=== PATIENT | female | born 1950 | race Caucasian/White ===

== ENCOUNTER 2019-10-03 11:45 | Emergency (ER) | payer MEDICARE, OTHER, MEDICAID ==
--- OUTSIDE RECORDS SUMMARY | 2019-10-03 12:10 | XMS REPORT | Continuity of Care Document ---
:1950 External Reference #:[id number] Author Name Theo Zepeda PA Address [address], [address] [place] [address] Care Team Providers Name Role Phone Roger Greenberg MD - Family Care Team Information Geological Sample Tester [phone] Medicine Problems Active Problems Provider Date Chest pain Collins Cash MD, PhD Onset: 05/13/2011 Benign essential hypertension Collins Cash MD, PhD Onset: 05/13/2011 Mixed hyperlipidemia Collins Cash MD, PhD Onset: 05/13/2011 Heart murmur Collins Cash MD, PhD Onset: 05/13/2011 Coronary arteriosclerosis Priscila Mauricio ANP Onset: 08/12/2011 Type 2 diabetes mellitus Priscila Mauricio ANP Onset: 08/12/2011 Palpitations Priscila Mauricio ANP Onset: 08/12/2011 Chest pain Collins Cash MD, PhD Onset: 08/12/2011 Dyspnea Collins Cash MD, PhD Onset: 08/12/2011 Sleep disorder Priscila Mauricio ANP Onset: 04/27/2013 Syncope and collapse Priscila Mauricio ANP Onset: 04/27/2013 Syncope Onset: 12/12/2014 Hypoglycemia Onset: 10/20/2014 Pneumonia Onset: 09/11/2014 Essential hypertension Priscila Mauricio ANP Onset: 10/10/2015 Atherosclerotic heart disease of [place] Priscila Mauricio ANP Onset: 2015 coronary artery with unspecified angina pectoris Tear film insufficiency Karel Longo MD Onset: 11/25/2017 Combined form of senile cataract Karel Longo MD Onset: 11/25/2017 Rubella with complication Karel Longo MD Onset: 11/25/2017 Orthostatic hypotension Betsey Mendoza M.D. Onset: 10/05/2018 Overactive bladder Betsey Mendoza M.D. Onset: 10/05/2018 Other urethral stricture, female Betsey Mendoza M.D. Onset: 11/13/2018 Other specified disorders of bladder Betsey Mendoza M.D. Onset: 03/29/2019 Retention of urine Betsey Mendoza M.D. Onset: 07/09/2019 Social History Type Date Description Comments Sex Unknown Tobacco Use Start: Unknown Never Smoked Cigarettes Smoking Status Reviewed: 09/02/19 Never Smoked Cigarettes ETOH Use Never used alcohol Tobacco Use Start: Unknown Patient has never smoked Recreational Drug Use Never Used Drugs Allergies, Adverse Reactions, Alerts Active Allergies Reaction Severity Comments Date Sumatriptan 01/04/2015 Inactive Allergies NKDA 05/13/2011 Medications Active Medications SIG Qnty Indications Ordering Date Provider Ofloxacin (Ophthalmic) 1 drop left eye 1units H25.812 Karel Longo, 2018 0.3% four times daily MD Solution for 10 days beginning three days before surgery Prednisolone Acetate 1 drop left eye 5ml H25.812 Karel Longo, 07/20/2019 1% four times daily MD Suspension for four weeks; please begin after surgery Ketorolac Tromethamine 1 drop operative 5units H25.812 Karel Longo, 07/20 0.5% eye 4 times MD Solution daily for 2 weeks; please begin 3 days prior to operation Botox In bladder by 1unida Mendoza, 06/15/2019 100Unit Solution Rec Franco Leggett Fludrocortisone Acetate 2 by mouth every 60tabs Andrea So MD 2018 day 0.1mg Tablets SM Aspirin Adult Low Take One Tablet 90tabs I25.119 Bria Bennett 2018 Strength By Mouth Every SHRUTHI Suero, 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 DR Day MACHINING ASSOCIATE Ranexa 1 by mouth twice 180tabs R07.9 Collins Cash, 08/24/2013 1000mg Tablets ER a day , PhD 12HR FQ Protective Underwear Use as Needed Unknown SM/Med 32-44" Misc Vitamin B12 1 by mouth every Unknown 100mcg Tablets day Onetouch Verio Use To Test Unknown Strips Blood Sugar Four Times A Day And as Needed Colace 1 by mouth daily Unknown 100mg Capsules and can take twice a day as needed Evening [place] Oil 1 po a day Unknown 1000mg Capsules Multivitamin Adults 1 tab po by Unknown mouth Tablets Topiramate take one tablet Unknown 50mg Tablets by mouth twice a day Magnesium 1 by mouth every Unknown 400mg Tablets day Coq10 Maximum Strength 1 by mouth every Unknown day 200mg Capsules Invokana 1 by mouth every Unknown 100mg Tablets day Pantoprazole Sodium 1 by mouth every Unknown 40mg day Tablets DR Bang HFA prn Unknown 108(90Base) mcg/Act Aerosol Nitrostat 1 tab sl every 5 30tabs Jolynn, 0.4mg Tablets Sub min x3 chest Wagner Jha M.D., pain FACC Zoloft 1 po qd Unknown 150mg Tablets Simvastatin 1 po qd 90tabs Collins Cash, 10mg Tablets , PhD History Medications Tamsulosin HCL 1 by mouth every 30caps N32.89 Betsey Mendoza, 03/29/2019 - day at bedtime M.D. 05/21/2019 0.4mg Capsules Medications Administered in Office Medication SIG Qnty Indications Ordering Provider Date Injection Ketorolac Theo Zepeda PA 05/07/2019 Tromethamine 30 MG/mL (Toradol) Injection Immunizations CPT Code Status Date Vaccine Lot # [id number] Given Unknown Pneumovax Injection Vital Signs Date Vital Result Comment 09/02/2019 11:45am BP Systolic 150 mmHg BP Diastolic 75 mmHg Body Temperature 97.5 F Heart Rate 73 /min Respiratory Rate 16 /min Height 57 inches 4'9" Weight 108.00 lb Pain Level 0 BMI (Body Mass Index) 23.4 kg/m2 BSA (Body Surface Area) 1.38 m2 [place] body weight in kilograms 45 kg O2 % BldC Oximetry 96 % 07/26/2019 10:44am BP Systolic 143 mmHg BP Diastolic 86 mmHg Body Temperature 97.1 F Heart Rate 105 /min Respiratory Rate 17 /min Height 57 inches 4'9" Weight 109.00 lb Pain Level 0 BMI (Body Mass Index) 23.6 kg/m2 BSA (Body Surface Area) 1.39 m2 [place] body weight in kilograms 45 kg O2 % BldC Oximetry 96 % Results Test Acquired Date Facility Test Result H/L Range Note Ua RFX Micro & 06/17/2019 [facility] Urine Color Yellow Yellow 1 Culture II [address] [place] [address] [phone] Urine Clarity Clear Clear Urine Glucose - Dipstick >1000 mg/dL Negative Urine Bilirubin - Dipstick NEGATIVE Negative Urine Ketone NEGATIVE mg/dL Negative Urine Specific Romeo 1.027 Normal 1.010-1.030 Urine Blood NEGATIVE 0-2 Urine PH 7.0 Normal 6.5-7.5 Urine Protein - Dipstick NEGATIVE mg/dL Negative Urine Urobilinogen - Dipstick < 2.0 mg/dL < 2.0 Urine Nitrite - Dipstick NEGATIVE Negative Urine Leuk Esterase NEGATIVE Negative Source: URINE, CLEAN CAT <SEE NOTE> 2 Urine Culture 05/05/2019 [facility] Urine Culture NO GROWTH: FINAL 3, [address] <SEE NOTE> [place] [address] [phone] Urine Culture 04/20/2019 [facility] Urine Culture MIXED URETHRAL F 5, [address] <SEE NOTE> [place] [address] [phone] Quantity > 100,000 CFU/mL 7 Urine Dipstick 04/20/2019 [facility] Ua Color yellow Yellow Ua Clarity cloudy Clear Ua Leuko neg Negative Ua Nitrite neg Negative Ua Urobilinogen 0.2 0.2 - 1.0 E.U./dL Ua Protein 15 High Negative Ua PH 6.0 Low 6.5-7.5 Ua Blood neg Negative Ua Specific Romeo 1.020 1.010-1.030 Ua Ketones neg Negative Ua Bilirubin neg Negative Ua Glucose 1000 High Negative 1 N39.0 Z01.818 2 URINE, CLEAN CATCH 3 CONSULT 05/04/19 12:00 4 NO GROWTH: FINAL REPORT 5 N39.0 6 MIXED URETHRAL CHRSISY 7 > 100,000 CFU/mL CULTURE IN PROGRESS SPECIMEN IS A MIX OF GRAM NEGATIVE AND GRAM POSITIVE ORGANISMS. UNABLE TO DETERMINE WHICH ORGANISMS ARE FROM THE URINARY TRACT OR THE RESULT OF SKIN VAGINAL PERIANAL CONTAMINATION DURING COLLECTION. SUGGEST REPEAT SPECIMEN IF CLINICALLY INDICATED. Procedures Date Code Description Status 07/28/2019 34162 Extracapsular Cataract Removal W/Insertion Of Intraocular Completed Lens pr 07/26/2019 24604 Measurement Post Voiding Residual Urine By Completed Ultrasound,Non-Imaging 07/20/2019 40188 Ophthalmic Biometry By Partial Coherence Interferometry Completed W/Intra 07/09/2019 43975 Measurement Post Voiding Residual Urine By Completed Ultrasound,Non-Imaging 07/09/2019 25676 Measurement Post Voiding Residual Urine By Completed Ultrasound,Non-Imaging 07/09/2019 29056 Insert Of Temporary Indwelling Bladder Catheter,Simple Completed 06/21/2019 83580 Cystourethroscopy With Chemodenervation Of The Bladder Completed 06/01/2019 86776 Eye Exam Est Patient Comprehensive Completed 05/17/2019 95326 Measurement Post Voiding Residual Urine By Completed Ultrasound,Non-Imaging 05/07/2019 15795 Theraputic Or Diagnostic Injection Completed 05/05/2019 13369 Cystourethroscopy W/ Biopsy Completed 04/20/2019 69994 Cystoscopy Completed 03/29/2019 04876 EKG-Tracing And Report Completed 03/18/2019 91304 voiding pressure study vp rheumatology intra abdominal voiding pressure Completed ap 03/18/2019 41969 emg studies of urethral sphincter, other than needle, any Completed tech 03/18/2019 15165 complex uroflowmetry electronic Completed 03/18/2019 15618 Cystometrogram complex w/ voiding and urethral pressure Completed studies 03/09/2019 97005 Measurement Post Voiding Residual Urine By Completed Ultrasound,Non-Imaging Medical Devices Description No Information Available Encounters Type Date Location Provider Dx Diagnosis Office Visit 09/02/2019 11:15a Urology Theo Zepeda N32.81 Overactive bladder PA Office Visit 07/26/2019 11:00a Urology Theo Zepeda N32.81 Overactive bladder PA R33.9 Retention of urine, unspecified Office Visit 07/20/2019 11:15a UrologBetsey Murphy N32.81 Overactive bladder M.D. R33.9 Retention of urine, unspecified Office Visit 07/09/2019 10:45a Urology Betsey Mendoza N32.81 Overactive bladder M.D. R33.9 Retention of urine, unspecified Office Visit 06/17/2019 9:30a Urology Theo Zepeda, R35.0 Frequency of PA micturition R39.15 Urgency of urination Office Visit 05/17/2019 10:15a Urology Betsey Mendoza N32.81 Overactive bladder M.D. Office Visit 05/07/2019 10:45a Urology Theo Zepeda N32.81 Overactive bladder PA M54.5 Low back pain Office Visit 03/29/2019 3:15p Urology Betsey Mendoza N32.81 Overactive bladder M.D. N32.89 Other specified disorders of bladder Office Visit 03/29/2019 9:40a Cardiology Office Daniel, I95.1 Orthostatic Marlyss SIMONA Medrano hypotension I25.10 Athscl heart disease of [place] coronary artery w/o ang pctrs E78.2 Mixed hyperlipidemia I34.0 Nonrheumatic mitral (valve) insufficiency Office Visit 03/09/2019 11:15a Urology Betsey Mendoza N32.81 Overactive bladder M.D. Assessments Date Code Description Provider 09/02/2019 N32.81 Overactive bladder Theo Zepeda PA 08/05/2019 Z48.810 Encounter for surgical aftercare following Karel Longo MD surgery on the sense organs 08/05/2019 Z96.1 Presence of intraocular lens Karel Longo MD 07/30/2019 Z01.818 Encounter for other preprocedural Karel Longo MD examination 07/30/2019 Z96.1 Presence of intraocular lens Karel Longo MD 07/29/2019 Z01.818 Encounter for other preprocedural Karel Longo MD examination 07/29/2019 Z96.1 Presence of intraocular lens Karel Longo MD 07/28/2019 H25.812 Combined forms of age-related cataract, Karel Longo MD left eye 07/28/2019 H57.03 Miosis Karel Longo MD 07/28/2019 Z86.19 Personal history of other infectious and Karel Longo MD parasitic diseases 07/26/2019 N32.81 Overactive bladder Theo Zepeda PA 07/26/2019 R33.9 Retention of urine, unspecified Theo Zepeda PA 07/20/2019 Z01.818 Encounter for other preprocedural Karel Longo MD examination 07/20/2019 N32.81 Overactive bladder Betsey Mendoza M.D. 07/20/2019 H25.812 Combined forms of age-related cataract, Karel Longo MD left eye 07/20/2019 R33.9 Retention of urine, unspecified Betsey Mendoza M.D. 07/20/2019 E11.65 Type 2 diabetes mellitus with hyperglycemia Karel Longo MD 07/20/2019 H04.123 Dry eye syndrome of bilateral lacrimal Karel Longo MD glands 07/20/2019 G47.33 Obstructive sleep apnea (adult) (pediatric) Karel Longo MD 07/09/2019 N32.81 Overactive bladder Betsey Mendoza M.D. 07/09/2019 R33.9 Retention of urine, unspecified Betsey Mendoza M.D. 06/21/2019 N32.81 Overactive bladder Betsey Mendoza M.D. 06/17/2019 R35.0 Frequency of micturition Theo Zepeda PA 06/17/2019 R39.15 Urgency of urination Theo Zepeda PA 06/01/2019 H25.812 Combined forms of age-related cataract, Karel Longo MD left eye 06/01/2019 E11.65 Type 2 diabetes mellitus with hyperglycemia Karel Longo MD 06/01/2019 H04.123 Dry eye syndrome of bilateral lacrimal Karel Longo MD glands 06/01/2019 G47.33 Obstructive sleep apnea (adult) (pediatric) Karel Longo MD 05/17/2019 N32.81 Overactive bladder Betsey Mendoza M.D. 05/07/2019 N32.81 Overactive bladder Theo Zepeda PA 05/07/2019 M54.5 Low back pain Theo Zepeda PA 05/05/2019 N32.9 Bladder disorder, unspecified Betsey Mendoza M.D. 05/05/2019 R35.0 Frequency of micturition Betsey Mendoza M.D. 05/05/2019 R39.15 Urgency of urination Betsey Mendoza M.D. 04/20/2019 N32.81 Overactive bladder Betsey Mendoza M.D. 03/29/2019 N32.81 Overactive bladder Betsey Mendoza M.D. 03/29/2019 I95.1 Orthostatic hypotension Oleksandr Sanchez PA 03/29/2019 N32.89 Other specified disorders of bladder Betsey Mendoza M.D. 03/29/2019 I25.10 Atherosclerotic heart disease of [place] Oleksandr Sanchez PA coronary artery without angina pectoris 03/29/2019 E78.2 Mixed hyperlipidemia Oleksandr Sanchez PA 03/29/2019 I34.0 Nonrheumatic mitral (valve) insufficiency Oleksandr Sanchez PA 03/18/2019 N32.81 Overactive Betsey Grant M.D. 03/18/2019 R39.12 Poor urinary stream Betsey Mendoza M.D. 03/09/2019 N32.81 Overactive bladder Betsey Mendoza M.D. Plan of Treatment Future Appointment(s):12/02/2019 10:00 am - Theo Zepeda PA at Iuvuexd9205/2019 10:00 am - Oleksandr Sanchez PA at Cardiology Office Functional Status Functional Condition Comment Date Status Independent with all ADL's Active Rolling walker is used to ambulate Active Independent with all IADL's Active Mental Status Description No Information Available Referrals Description No Information Available
--- OUTSIDE RECORDS SUMMARY | 2019-10-03 12:10 | XMS REPORT | Continuity of Care Document ---
:1950 External Reference #:[id number] Author Name Karel Longo MD Address [address] [place] [address] Care Team Providers Name Role Phone Roger Greenberg MD - Family Care Team Information Soloist Dancer [phone] Medicine Problems Active Problems Provider Date Chest [...] ANP Onset: 10/10/2015 Atherosclerotic heart disease of [place] Priscila Mauricio ANP Onset: 2015 coronary artery [...] Unknown Never Smoked Cigarettes Smoking Status Reviewed: 08/05/19 Never Smoked Cigarettes ETOH Use Never used [...] Every SHRUTHI Suero, 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 DR Day FLOW SPECIALIST Ranexa 1 by mouth twice 180tabs R07.9 [...] take twice a day as needed Evening [place] Oil 1 po a day Unknown 1000mg [...] Jolynn, 0.4mg Tablets Sub min x3 chest Wagnerjuancho Jha M.D., pain FACC Zoloft 1 po qd Unknown 150mg Tablets Simvastatin 1 po qd 90tabs Collins Cash, 10mg Tablets , PhD History Medications Tamsulosin HCL 1 by mouth 30caps N32.89 Betsey Mendoza, 03/29/2019 - 0.4mg every day at M.D. 05/21/2019 Capsules bedtime Myrbetriq 1 by mouth 30tabs Betsey Mendoza, 02/23/2019 - 50mg Tablets ER every day M.D. 05/21/2019 24HR Fludrocortisone Acetate 1 by mouth 30tabs Bria Bennett 02/12/2019 - every day [place], MSN, 03/12/2019 0.1mg Tablets FLOW SPECIALIST Medications Administered in Office Medication SIG Qnty Indications Ordering Provider Date Injection Ketorolac Theo Zepeda PA 05/07/2019 Tromethamine 30 MG/mL (Toradol) Injection Immunizations CPT Code Status Date Vaccine Lot # [id number] Given Unknown Pneumovax Injection Vital Signs Date Vital Result Comment 07/26/2019 10:44am BP Systolic 143 mmHg BP Diastolic 86 mmHg Body Temperature 97.1 F Heart Rate 105 /min Respiratory Rate 17 /min Height 57 inches 4'9" Weight 109.00 lb BMI (Body Mass Index) 23.6 kg/m2 BSA (Body Surface Area) 1.39 m2 [place] body weight in kilograms 45 kg O2 % BldC Oximetry 96 % Pain Level 0 07/20/2019 11:14am BP Systolic 155 mmHg BP Diastolic 83 mmHg Body Temperature 97.6 F Heart Rate 79 /min Respiratory Rate 16 /min Height 57 inches 4'9" Weight 109.00 lb BMI (Body Mass Index) 23.6 kg/m2 BSA (Body Surface Area) 1.39 m2 [place] body weight in kilograms 45 kg O2 % BldC Oximetry 98 % Pain Level 0 Results Test Acquired Date Facility Test Result H/L Range Note Ua RFX Micro & 06/17/2019 [facility] Urine Color Yellow Yellow 1 Culture II [address] [place] [address] [phone] Urine Clarity Clear Clear Urine Glucose - Dipstick >1000 mg/dL Negative Urine Bilirubin - Dipstick NEGATIVE Negative Urine Ketone NEGATIVE mg/dL Negative Urine Specific Painter 1.027 Normal 1.010-1.030 Urine Blood NEGATIVE 0-2 Urine PH 7.0 Normal 6.5-7.5 Urine Protein - Dipstick NEGATIVE mg/dL Negative Urine Urobilinogen - Dipstick < 2.0 mg/dL < 2.0 Urine Nitrite - Dipstick NEGATIVE Negative Urine Leuk Esterase NEGATIVE Negative Source: URINE, CLEAN CAT <SEE NOTE> 2 Urine Culture 05/05/2019 [facility] Urine Culture NO GROWTH: FINAL 3, [address] <SEE NOTE> [place] [address] [phone] Urine Culture 04/20/2019 [facility] Urine Culture MIXED URETHRAL F 5, [address] <SEE NOTE> [place] [address] [phone] Quantity > 100,000 CFU/mL 7 Urine Dipstick 04/20/2019 [facility] Ua Color yellow Yellow Ua Clarity cloudy Clear Ua Leuko neg Negative Ua Nitrite neg Negative Ua Urobilinogen 0.2 0.2 - 1.0 E.U./dL Ua Protein 15 High Negative Ua PH 6.0 Low 6.5-7.5 Ua Blood neg Negative Ua Specific Painter 1.020 1.010-1.030 Ua Ketones neg Negative Ua Bilirubin neg Negative Ua Glucose 1000 High Negative Urine Dipstick 02/23/2019 [facility] Ua Color Dark Yellow Yellow Ua Clarity Clear Clear Ua Leuko Negative Negative Ua Nitrite Negative Negative Ua Urobilinogen 0.2 0.2 - 1.0 E.U./dL Ua Protein Negative Negative Ua PH 6.0 Low 6.5-7.5 Ua Blood Negative Negative Ua Specific Painter 1.015 1.010-1.030 Ua Ketones Negative Negative Ua Bilirubin Negative Negative Ua Glucose 1000 High Negative 1 N39.0 Z01.818 2 URINE, CLEAN CATCH 3 CONSULT 05/04/19 12:00 4 NO GROWTH: FINAL REPORT 5 N39.0 6 MIXED URETHRAL CHRISSY 7 > 100,000 CFU/mL CULTURE IN PROGRESS SPECIMEN IS A MIX OF GRAM NEGATIVE AND GRAM POSITIVE ORGANISMS. UNABLE TO DETERMINE WHICH ORGANISMS ARE FROM THE URINARY TRACT OR THE RESULT OF SKIN VAGINAL PERIANAL CONTAMINATION DURING COLLECTION. SUGGEST REPEAT SPECIMEN IF CLINICALLY INDICATED. Procedures Date Code Description Status 07/28/2019 57620 Extracapsular Cataract Removal W/Insertion Of Intraocular Completed Lens pr 07/26/2019 47316 Measurement Post Voiding Residual Urine By Completed Ultrasound,Non-Imaging 07/20/2019 40006 Ophthalmic Biometry By Partial Coherence Interferometry Completed W/Intra 07/09/2019 27587 Measurement Post Voiding Residual Urine By Completed Ultrasound,Non-Imaging 07/09/2019 96735 Measurement Post Voiding Residual Urine By Completed Ultrasound,Non-Imaging 07/09/2019 59413 Insert Of Temporary Indwelling Bladder Catheter,Simple Completed 06/21/2019 18458 Cystourethroscopy With Chemodenervation Of The Bladder Completed 06/01/2019 81636 Eye Exam Est Patient Comprehensive Completed 05/17/2019 40795 Measurement Post Voiding Residual Urine By Completed Ultrasound,Non-Imaging 05/07/2019 81381 Theraputic Or Diagnostic Injection Completed 05/05/2019 40316 Cystourethroscopy W/ Biopsy Completed 04/20/2019 74857 Cystoscopy Completed 03/29/2019 07365 EKG-Tracing And Report Completed 03/18/2019 70680 voiding pressure study evp intra abdominal voiding pressure Completed ap 03/18/2019 05442 emg studies of urethral sphincter, other than needle, any Completed tech 03/18/2019 46180 complex uroflowmetry electronic Completed 03/18/2019 41105 Cystometrogram complex w/ voiding and urethral pressure Completed studies 03/09/2019 10709 Measurement Post Voiding Residual Urine By Completed Ultrasound,Non-Imaging 02/23/2019 19269 Measurement Post Voiding Residual Urine By Completed Ultrasound,Non-Imaging Medical Devices Description No Information Available Encounters Type Date Location Provider Dx Diagnosis Office Visit 07/26/2019 11:00a Urology Theo Zepeda, N32.81 Overactive bladder PA R33.9 Retention of urine, unspecified Office Visit 07/20/2019 11:15a Urology Betsey Mendoza N32.81 Overactive bladder M.D. R33.9 Retention of urine, unspecified Office Visit 07/09/2019 10:45a UrologBetsey Murphy N32.81 Overactive bladder M.D. R33.9 [...] 9:40a Cardiology Office Daniel, I95.1 Orthostatic Marlyss BMaddy, PA hypotension I25.10 Athscl heart disease of [place] coronary artery w/o ang pctrs E78.2 Mixed hyperlipidemia I34.0 Nonrheumatic mitral (valve) insufficiency Office Visit 03/09/2019 11:15a UrologBetsey Murphy N32.81 Overactive bladder M.D. Office Visit 02/23/2019 11:45a UrologBetsey Murphy N32Maddy81 Overactive bladder M.D. Assessments Date Code Description Provider 08/05/2019 Z96.1 Presence of intraocular lens Karel [...] left eye 07/20/2019 R33.9 Retention of urine, unspecBetsey Schmitz M.D. 07/20/2019 E11.65 Type 2 diabetes mellitus [...] M.D. 03/29/2019 I25.10 Atherosclerotic heart disease of [place] Oleksandr Sanchez PA coronary artery without angina pectoris 03/29/2019 E78.2 Mixed hyperlipidemia Oleksandr Sanchez PA 03/29/2019 I34.0 Nonrheumatic mitral (valve) insufficiency Oleksandr Sanchez PA 03/18/2019 N32.81 Overactive Betsey Grant M.D. 03/18/2019 R39.12 Poor urinary stream Betsey Mendoza M.D. 03/09/2019 N32.81 Overactive Betsey Grant M.D. 02/23/2019 N32.81 Overactive bladder Betsey Mendoza M.D. Plan of Treatment Future Appointment(s):08/30/2019 9:15 am - Karel Longo MD at [email or web address]/ 27/2019 9:00 am - Theo Zepeda PA at [email or web address]/09/2019 11:40 am - Oleksandr Sanchez PA at Cardiology Rfojtg4708/05/2019 - Karel Longo MDZ96.1 Presence of intraocular lensComments:- s/p ce, iol left eye 07/28/19- looks great; you're taking wonderful care of your eye- please stop ofloxacin- please stop ketorolac- prednisolone 1 drop operative eye four times daily for 4 weeks total - please stop erythromycin2-3 weeks post-op auto, refract osFollow up:2- 3 weeks post-op auto, refract os Functional Status Functional Condition Comment Date Status Independent with all ADL's Active Rolling walker is used to ambulate Active Independent with all IADL's Active Mental Status Description No Information Available Referrals Description No Information Available
--- OUTSIDE RECORDS SUMMARY | 2019-10-03 12:10 | XMS REPORT | Continuity of Care Document ---
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 Medicine Problems Active Problems Provider Date Chest pain Collins Cash MD, PhD Onset: 05/13/2011 Benign essential hypertension Collins Cash MD, PhD Onset: 05/13/2011 Mixed hyperlipidemia Collins Cash MD, PhD Onset: 05/13/2011 Heart murmur Collins Cahs MD, PhD Onset: 05/13/2011 Coronary arteriosclerosis Priscila [...] ANP Onset: 10/10/2015 Atherosclerotic heart disease of [place] Priscila Mauricio ANP Onset: 2015 coronary artery [...] Every SHRUTHI Suero, 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 Ranexa 1 by mouth twice 180tabs R07.9 [...] take twice a day as needed Evening [place] Oil 1 po a day Unknown 1000mg [...] CPT Code Status Date Vaccine Lot # [id number] Given Unknown Pneumovax Injection Vital Signs Date Vital Result Comment 09/06/2019 10:38am BP Systolic Sitting Left Arm 125 mmHg BP Diastolic Sitting Left Arm 60 mmHg Heart Rate 90 /min Respiratory Rate 16 /min Height 57 inches 4'9" Weight 105.00 lb BMI (Body Mass Index) 22.7 kg/m2 BSA (Body Surface Area) 1.37 m2 [place] body weight in kilograms 45 kg O2 % BldC Oximetry 96 % 09/02/2019 11:45am BP Systolic 150 mmHg BP Diastolic 75 mmHg Body Temperature 97.5 F Heart Rate 73 /min Respiratory Rate 16 /min Height 57 inches 4'9" Weight 108.00 lb Pain Level 0 BMI (Body Mass Index) 23.4 kg/m2 BSA (Body Surface Area) 1.38 m2 [place] body weight in kilograms 45 kg O2 % BldC Oximetry 96 % Results Test Acquired Date Facility Test Result H/L Range Note Ua RFX Micro & 06/17/2019 [facility] Urine Color Yellow Yellow 1 Culture II [address] [place] [address] [phone] Urine Clarity Clear Clear Urine Glucose - Dipstick >1000 mg/dL Negative Urine Bilirubin - Dipstick NEGATIVE Negative Urine Ketone NEGATIVE mg/dL Negative Urine Specific [place] 1.027 Normal 1.010-1.030 Urine Blood NEGATIVE 0-2 Urine PH 7.0 Normal 6.5-7.5 Urine Protein - Dipstick NEGATIVE mg/dL Negative Urine Urobilinogen - Dipstick < 2.0 mg/dL < 2.0 Urine Nitrite - Dipstick NEGATIVE Negative Urine Leuk Esterase NEGATIVE Negative Source: URINE, CLEAN CAT <SEE NOTE> 2 Urine Culture 05/05/2019 [facility] Urine Culture NO GROWTH: FINAL 3, [address] <SEE NOTE> [place] [address] [phone] Urine Culture 04/20/2019 [facility] Urine Culture MIXED URETHRAL F 5, [address] <SEE NOTE> [place] [address] [phone] Quantity > 100,000 CFU/mL 7 Urine Dipstick 04/20/2019 [facility] Ua Color yellow Yellow Ua Clarity cloudy Clear Ua Leuko neg Negative Ua Nitrite neg Negative Ua Urobilinogen 0.2 0.2 - 1.0 E.U./dL Ua Protein 15 High Negative Ua PH 6.0 Low 6.5-7.5 Ua Blood neg Negative Ua Specific [place] 1.020 1.010-1.030 Ua Ketones neg Negative Ua [...] CLINICALLY INDICATED. Procedures Date Code Description Status 09/02/2019 28314 Measurement Post Voiding Residual Urine By Completed Ultrasound,Non-Imaging 07/28/2019 39269 Extracapsular Cataract Removal W/Insertion Of Intraocular Completed Lens pr 07/26/2019 67515 Measurement Post Voiding Residual Urine By Completed Ultrasound,Non-Imaging 07/20/2019 86743 Ophthalmic Biometry By Partial Coherence Interferometry Completed W/Intra 07/09/2019 11917 Measurement Post Voiding Residual Urine By Completed Ultrasound,Non-Imaging 07/09/2019 60873 Measurement Post Voiding Residual Urine By Completed Ultrasound,Non-Imaging 07/09/2019 68693 Insert Of Temporary Indwelling Bladder Catheter,Simple Completed 06/21/2019 22137 Cystourethroscopy With Chemodenervation Of The Bladder Completed 06/01/2019 41938 Eye Exam Est Patient Comprehensive Completed 05/17/2019 55201 Measurement Post Voiding Residual Urine By Completed Ultrasound,Non-Imaging 05/07/2019 20463 Theraputic Or Diagnostic Injection Completed 05/05/2019 54899 Cystourethroscopy W/ Biopsy Completed 04/20/2019 85082 Cystoscopy Completed 03/29/2019 25411 EKG-Tracing And Report Completed 03/18/2019 48451 voiding pressure study [employer] intra abdominal voiding pressure Completed ap 03/18/2019 59443 emg studies of urethral sphincter, other than needle, any Completed tech 03/18/2019 16663 complex uroflowmetry electronic Completed 03/18/2019 53420 Cystometrogram complex w/ voiding and urethral pressure Completed studies Medical Devices Description No Information Available Encounters Type Date Location Provider Dx Diagnosis Office Visit 09/06/2019 Cardiology Office Oleksandr Sanchez I95.1 Orthostatic 10:00a SIMONA Medrano hypotension I25.10 Athscl heart disease of [place] coronary artery w/o ang pctrs E78.2 Mixed hyperlipidemia I34.0 Nonrheumatic mitral (valve) insufficiency Office Visit 09/02/2019 11:15a Urology Theo Zepeda, N32.81 Overactive bladder PA Office Visit 07/26/2019 11:00a Urology Theo Zepeda, [...] bladder Office Visit 03/29/2019 9:40a Cardiology Office Daniel I95.1 Orthostatic Oleksandr Medrano, SIMONA hypotension I25.10 Athscl heart disease of [place] coronary artery w/o ang pctrs E78.2 Mixed hyperlipidemia I34.0 Nonrheumatic mitral (valve) insufficiency Assessments Date Code Description Provider 09/06/2019 I95.1 Orthostatic hypotension Oleksandr Sanchez, PA 09/06/2019 I25.10 Atherosclerotic heart disease of [place] Oleksandr Sanchez , PA coronary artery without angina pectoris 09/06/2019 E78.2 Mixed hyperlipidemia Patricia Sanchezs BMaddy, PA 09/06/2019 I34.0 Nonrheumatic mitral (valve) insufficiency Oleksandr Sanchez, PA 09/02/2019 Z96.1 Presence of intraocular lens Karel Longo MD 09/02/2019 N32.81 Overactive bladder Theo Zepeda PA [...] Mendoza M.D. 07/09/2019 R33.9 Retention of urine, unspecBetsey Schmitz M.D. 06/21/2019 N32.81 Overactive bladder Betsey Mendoza [...] M.D. 03/29/2019 I25.10 Atherosclerotic heart disease of [place] Oleksandr Sanchez PA coronary artery without angina pectoris 03/29/2019 E78.2 Mixed hyperlipidemia Oleksandr Sanchez PA 03/29/2019 I34.0 Nonrheumatic mitral (valve) insufficiency Oleksandr Sanchez PA 03/18/2019 N32.81 Overactive bladder Betsey Mendoza M.D. 03/18/2019 R39.12 Poor urinary stream Betsey Mendoza M.D. Plan of Treatment Future Appointment(s):03/07/2020 10:40 am - Oleksandr Sanchez PA at Cardiology Yyfbkx2009/04/2020 9:00 am - Karel Longo MD at [facility]ort[facility]15/05/ 2020 10:00 am - Theo Zepeda PA at Uayfuir55/09/2019 - Oleksandr Sanchez , PAI95.1 Orthostatic hypotensionComments:Monitor. No changes.I25.10 Atherosclerotic heart disease of [place] coronary artery without angina pectorisComments:Continue with medical management. No changes.E78.2 Mixed hyperlipidemiaComments:Followed by PCP.I34.0 Nonrheumatic mitral (valve) insufficiencyNew Orders:Echocardiogram, Ordered: 09/06/19Comments:Will re- evaluate with an echocardiogram.AllFollow up:6 months with echo prior Functional Status Functional Condition Comment Date Status Independent with all ADL's Active Rolling walker is used to ambulate Active Independent with all IADL's Active Mental Status Description No Information Available Referrals Description No Information Available
--- OUTSIDE RECORDS SUMMARY | 2019-10-03 12:10 | XMS REPORT | Continuity of Care Document ---
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 Medicine Problems Active Problems Provider Date Chest [...] ANP Onset: 10/10/2015 Atherosclerotic heart disease of [place] Priscila Mauricio ANP Onset: 2015 coronary artery [...] prior to operation Botox In bladder by 1anthony Mendoza, 06/15/2019 100Unit Solution Rec Franco Leggett Fludrocortisone Acetate 2 by mouth every 60tabs Andrea So MD 2018 day 0.1mg Tablets SM Aspirin Adult Low Take One Tablet 90tabs I25.119 Bria Bennett 2018 Strength By Mouth Every SHRUTHI Suero, 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 by mouth twice 180tabs R07.9 [...] take twice a day as needed Evening [place] Oil 1 po a day Unknown 1000mg [...] Betsey Mendoza, 03/29/2019 - day at bedtime M.DMaddy 05/21/2019 0.4mg Capsules Medications Administered in Office Medication SIG Qnty Indications Ordering Provider Date Injection Ketorolac Theo Zepeda PA 05/07/2019 Tromethamine 30 MG/mL (Toradol) Injection Immunizations CPT Code Status Date Vaccine Lot # [id number] Given Unknown Pneumovax Injection Vital Signs Date Vital Result Comment 09/06/2019 10:38am BP Systolic Sitting Left Arm 125 mmHg BP Diastolic Sitting Left Arm 60 mmHg Heart Rate 90 /min Respiratory Rate 16 /min Height 57 inches 4'9" Weight 105.00 lb BMI (Body Mass Index) 22.7 kg/m2 BSA (Body Surface Area) 1.37 m2 [place] body weight in kilograms 45 kg O2 % BldC Oximetry 96 % 09/02/2019 11:45am BP Systolic 150 mmHg BP Diastolic 75 mmHg Body Temperature 97.5 F Heart Rate 73 /min Respiratory Rate 16 /min Height 57 inches 4'9" Weight 108.00 lb Pain Level 0 BMI (Body Mass Index) 23.4 kg/m2 BSA (Body Surface Area) 1.38 m2 [place] body weight in kilograms 45 kg O2 % BldC Oximetry 96 % Results Test Acquired Date Facility Test Result H/L Range Note Ua RFX Micro & 06/17/2019 [facility] Urine Color Yellow Yellow 1 Culture II [address] [place] [address] [phone] Urine Clarity Clear Clear Urine Glucose - Dipstick >1000 mg/dL Negative Urine Bilirubin - Dipstick NEGATIVE Negative Urine Ketone NEGATIVE mg/dL Negative Urine Specific [place] 1.027 Normal 1.010-1.030 Urine Blood NEGATIVE 0-2 Urine PH 7.0 Normal 6.5-7.5 Urine Protein - Dipstick NEGATIVE mg/dL Negative Urine Urobilinogen - Dipstick < 2.0 mg/dL < 2.0 Urine Nitrite - Dipstick NEGATIVE Negative Urine Leuk Esterase NEGATIVE Negative Source: URINE, CLEAN CAT <SEE NOTE> 2 Urine Culture 05/05/2019 [facility] Urine Culture NO GROWTH: FINAL 3, [address] <SEE NOTE> [place] [address] [phone] Urine Culture 04/20/2019 [facility] Urine Culture MIXED URETHRAL F 5, [address] <SEE NOTE> [place] [address] [phone] Quantity > 100,000 CFU/mL 7 Urine Dipstick 04/20/2019 [facility] Ua Color yellow Yellow Ua Clarity cloudy Clear Ua Leuko neg Negative Ua Nitrite neg Negative Ua Urobilinogen 0.2 0.2 - 1.0 E.U./dL Ua Protein 15 High Negative Ua PH 6.0 Low 6.5-7.5 Ua Blood neg Negative Ua Specific [place] 1.020 1.010-1.030 Ua Ketones neg Negative Ua [...] INDICATED. Procedures Date Code Description Status 07/28/2019 03084 Extracapsular Cataract Removal W/Insertion Of Intraocular Completed Lens pr 07/26/2019 33325 Measurement Post Voiding Residual Urine By Completed Ultrasound,Non-Imaging 07/20/2019 03631 Ophthalmic Biometry By Partial Coherence Interferometry Completed W/Intra 07/09/2019 50592 Measurement Post Voiding Residual Urine By Completed Ultrasound,Non-Imaging 07/09/2019 95189 Measurement Post Voiding Residual Urine By Completed Ultrasound,Non-Imaging 07/09/2019 10959 Insert Of Temporary Indwelling Bladder Catheter,Simple Completed 06/21/2019 52510 Cystourethroscopy With Chemodenervation Of The Bladder Completed 06/01/2019 65592 Eye Exam Est Patient Comprehensive Completed 05/17/2019 45169 Measurement Post Voiding Residual Urine By Completed Ultrasound,Non-Imaging 05/07/2019 92997 Theraputic Or Diagnostic Injection Completed 05/05/2019 17084 Cystourethroscopy W/ Biopsy Completed 04/20/2019 73010 Cystoscopy Completed 03/29/2019 01540 EKG-Tracing And Report Completed 03/18/2019 53768 voiding pressure study [employer] intra abdominal voiding pressure Completed ap 03/18/2019 85921 emg studies of urethral sphincter, other than needle, any Completed tech 03/18/2019 98054 complex uroflowmetry electronic Completed 03/18/2019 18995 Cystometrogram complex w/ voiding and urethral pressure Completed studies 03/09/2019 80827 Measurement Post Voiding Residual Urine By Completed Ultrasound,Non-Imaging Medical Devices Description No Information Available Encounters Type Date Location Provider Dx Diagnosis Office Visit 09/06/2019 Cardiology Office Oleksandr Sanchez I95.1 Orthostatic 10:00a Nia.SIMONA hypotension I25.10 Athscl heart disease of [place] coronary artery w/o ang pctrs E78.2 Mixed [...] 03/29/2019 9:40a Cardiology Office Daniel I95.1 Orthostatic SIMONA Lopes hypotension I25.10 Athscl heart disease of [place] coronary artery w/o ang pctrs E78.2 Mixed hyperlipidemia I34.0 Nonrheumatic mitral (valve) insufficiency Office Visit 03/09/2019 11:15a Urology Betsey Mendoza N32.81 Overactive bladder M.D. Assessments Date Code Description Provider 09/06/2019 I95.1 Orthostatic hypotension Oleksandr Sanchez, PA 09/06/2019 I25.10 Atherosclerotic heart disease of [place] Oleksandr Sanchez , SIMONA coronary artery without angina pectoris 09/06/2019 E78.2 Mixed hyperlipidemia Oleksandr Sanchez, PA 09/06/2019 I34.0 Nonrheumatic mitral (valve) insufficiency [...] G47.33 Obstructive sleep apnea (adult) (pediatric) Karel Lonog MD 05/17/2019 N32.81 Overactive bladder Betsey Mendoza [...] M.D. 03/29/2019 I25.10 Atherosclerotic heart disease of [place] Oleksandr Sanchez PA coronary artery without angina pectoris 03/29/2019 E78.2 Mixed hyperlipidemia Oleksandr Sanchez PA 03/29/2019 I34.0 Nonrheumatic mitral (valve) insufficiency Oleksandr Sanchez PA 03/18/2019 N32.81 Overactive Betsey Grant M.D. 03/18/2019 R39.12 Poor urinary stream Betsey Mendoza M.D. 03/09/2019 N32.81 Overactive bladder Betsey Mendoaz M.D. Plan of Treatment Future Appointment(s):03/07/2020 10:40 am - Oleksandr Sanchez PA at Cardiology Uylgay6409/04/2020 9:00 am - Karel Longo MD at Tbmtkeykrzwck35/05/ 2020 10:00 am - Theo Zepeda PA at Pvpvqyt55/05/2019 - Karel Longo MDZ96.1 Presence of intraocular lensComments:- s/p ce, iol left eye 07/28/19- looks great; you're taking wonderful care of your eye- please stop ofloxacin- please stop ketorolac- please stop prednisolone - please stop erythromycin1 year examFollow up:1 year exam Functional Status Functional Condition Comment Date Status Independent with all ADL's Active Rolling walker is used to ambulate Active Independent with all IADL's Active Mental Status Description No Information Available Referrals Description No Information Available
[2019-10-03 12:45] VITALS: BP 129/68
--- NOTE | 2019-10-03 13:14 | UC ---
Complaint Female HPI - HPI Summary HPI Summary: 69 year old mildly mentally disabled female who has had urinary frequency and burning on urination over the past 24 hours. She also has a right-sided back strain which the granddaughter states is from "[employer]" dancing 2 days ago when she pulled a muscle. She denies any nausea vomiting or diarrhea. Although the patient does answer some of the questions the granddaughter answers many of them. - History Of Current Complaint Chief Complaint: UCBackPain Stated Complaint: BACK PAIN, BURNING WITH URINATION Time Seen by Provider: 10/03/19 12:36 Hx Obtained From: Patient, Family/Pheresis Specialist ?: No Onset/Duration: Gradual Onset Timing: Constant Severity Initially: Mild Severity Currently: Moderate Pain Intensity: 9 Character: Burning Aggravating Factor(s): Urination Alleviating Factor(s): Position Associated Signs And Symptoms: Positive: Back Pain - Allergies/Home Medications Allergies/Adverse Reactions: Allergies Allergy/AdvReac Type Severity Reaction Status Date / Time sumatriptan Allergy Unknown Verified 10/03/19 12:39 Reaction Details Home Medications: Home Medications Riboflavin (Vitamin B2) [Vitamin B-2] 25 mg PO DAILY 10/03/19 [History Confirmed 10/03/19] Vitamin THERAPEUTIC TAB* [Theragran TAB*] 1 tab PO DAILY 10/03/19 [History Confirmed 10/03/19] PMH/Surg Hx/FS Hx/Imm Hx Previously Healthy: Yes Endocrine History: Diabetes - Type 2 diabetes., Dyslipidemia Cardiovascular History: Other - Cardiac stents Psychological History: Depression - Surgical History Surgical History: Yes Surgery Procedure, Year, and Place: Bladder Stimular (turned off); Hysterectomy ; Ear Surgeries - Family History Known Family History: Positive: Non-Contributory - Social History Occupation: Disabled Lives: With Family Alcohol Use: None Substance Use Type: None Smoking Status (MU): Never Smoked Tobacco Review of Systems All Other Systems Reviewed And Are Negative: Yes Genitourinary: Positive: Dysuria, Frequency Musculoskeletal: Positive: Other: - Right sided back pain since dancing 2 days ago. Is Patient Immunocompromised?: No Physical Exam Triage Information Reviewed: Yes Completion Of Physical Exam Limited Due To: Altered Mental Status - Patient is mildly mentally disabled Appearance: Well-Appearing, No Pain Distress, Well-Nourished Vital Signs: Initial Vital Signs Temp 99.3 F 10/03/19 12:34 Pulse 78 10/03/19 12:34 Resp 16 10/03/19 12:34 BP 129/68 10/03/19 12:34 Pulse Ox 100 10/03/19 12:34 Vital Signs Reviewed: Yes Eyes: Positive: Conjunctiva Clear ENT: Positive: Hearing grossly normal Respiratory: Positive: Lungs clear, Normal breath sounds, No respiratory distress, No accessory muscle use Cardiovascular: Positive: RRR, No Murmur, Pulses Normal, Brisk Capillary Refill Abdomen Description: Positive: No Organomegaly, Soft, Other: - Patient has some tenderness in the right lower quadrant, no rigidity, rebound or guarding. The granddaughter stated this is typical for when she has a urinary tract infection.. Negative: CVA Tenderness (R), CVA Tenderness (L), Distended, Guarding, Hepatomegaly, Splenomegaly Bowel Sounds: Positive: Present Musculoskeletal: Positive: Strength Intact, ROM Intact, Other: - Mild pain on palpation to the right lower back with no erythema, swelling, bruising or deformity. Patient is able to replicate the pain with movement. The patient does need assistance walking however she is ambulatory per her norm. Neurological Exam: Normal Psychological Exam: Normal Skin Exam: Normal Complaint Female Dx - Course Course Of Treatment: The patient is comfortable here. I'm going to treat her for urinary tract infection however I discussed with the granddaughter that she has a low-grade fever, she has tenderness in the right lower quadrant, and she has 1+ leukocytes in her urine which could mask an appendicitis. The granddaughter states this is her typical presentation for urinary tract infection, however she is willing to go to the emergency room if no improvement in 24 hours of symptoms. In the past patient has had a urinary tract infection with the same presentation and has been worked up in the emergency room for appendicitis which was all negative. The granddaughter reassured me that she would go to the ER if any worsening symptoms or no improvement in symptoms in 24 hours. The back strain I believe is from her excessive dancing 2 days ago when she can apply heat to the sore area and take Tylenol or Motrin for pain - Differential Dx/Diagnosis Provider Diagnosis: UTI (urinary tract infection), Back strain Discharge ED - Sign-Out/Discharge Documenting (check all that apply): Patient Departure All imaging exams completed and their final reports reviewed: No Studies - Discharge Plan Condition: Fair Disposition: HOME Prescriptions: Sulfamethox/Trimethoprim DS* [Bactrim DS 800/160 TAB*] 1 tab PO BID 5 Days #10 tab Patient Education Materials: Urinary Tract Infection in Older Adults (ED) Referrals: Maricarmen Mclean PA [Primary Care Provider] - Additional Instructions: Increase fluids, take the Bactrim with food. Avoid movements that cause pain and may apply heat to the sore area. Definite follow-up in 24 hours in the emergency room if any worsening of pain or symptoms. - Billing Disposition and Condition Condition: FAIR Disposition: Home
== END 2019-10-03 13:37 | disposition home or self-care (01) ==
LOC: UCCORT 11:45
DX: N39.0 Urinary tract infection, site not specified (principal); S39.012A Strain of muscle, fascia and tendon of lower back, initial encounter; F99 Mental disorder, not otherwise specified; E11.9 Type 2 diabetes mellitus without complications; Y93.41 Activity, dancing; Y92.9 Unspecified place or not applicable; Z95.818 Presence of other cardiac implants and grafts; Z88.6 Allergy status to analgesic agent
CPT/HCPCS: 81003; 87077; 87086; 87186; 99213; G0463